=== PATIENT | male | born 1945 ===

== ENCOUNTER 2018-04-02 11:28 | Inpatient (IN) | payer OTHER ==
[~2018-04-02] VITALS: Ht 180.3 cm; Wt 117.9 kg
[2018-04-02] MEDS ORDERED: FORTAMET1000 MG (11:56)
[2018-04-02] MEDS ORDERED: NEURONTIN800 MG (11:57)
[2018-04-02] MEDS ORDERED: COZAAR100 MG (11:57)
== END 2018-04-04 11:24 | disposition home or self-care (01) | DRG 433 ==
LOC: ER 11:28 → MEDI 16:37 → EDBD 16:37 → MEDI 04-03 18:50 → EDBD 04-04 11:24
PROC: 3E0F7GC Introduction of Other Therapeutic Substance into Respiratory Tract, Via Natural or Artificial Opening (ICD-10-PCS; 2018-04-02)
PROC: 4A033R1 Measurement of Arterial Saturation, Peripheral, Percutaneous Approach (ICD-10-PCS; 2018-04-02)
PROC: BW21YZZ Computerized Tomography (CT Scan) of Abdomen and Pelvis using Other Contrast (ICD-10-PCS; 2018-04-02)
PROC: 0W9G3ZX Drainage of Peritoneal Cavity, Percutaneous Approach, Diagnostic (ICD-10-PCS; principal; 2018-04-03)
DX: K74.69 Other cirrhosis of liver (principal); R18.8 Other ascites; I11.9 Hypertensive heart disease without heart failure; E11.9 Type 2 diabetes mellitus without complications; R06.02 Shortness of breath

== ENCOUNTER 2018-04-27 11:40 | Day surgery (SDC) | payer OTHER ==
[~2018-04-27 11:40] MED LIST: COZAAR100 MG; FORTAMET1000 MG; NEURONTIN800 MG
== END 2018-04-27 16:10 | disposition home or self-care (01) ==
LOC: AMB-ENDOS 11:40 → EDBD 11:40 → AMB-ENDOS 16:10
DX: K74.69 Other cirrhosis of liver (principal); R18.8 Other ascites

== ENCOUNTER 2018-07-28 06:50 | Inpatient (IN) | payer OTHER ==
[~2018-07-28] VITALS: Ht 180.3 cm; Wt 122.5 kg
[2018-07-28] MEDS ORDERED: LASIX40 MG PO (07:28)
[2018-07-28] MEDS ORDERED: PROTONIX40 MG PO (07:29)
[2018-07-30] MEDS ORDERED: ZYLOPRIM100 M1 PO (09:35)
[2018-07-30] MEDS ORDERED: FUROSEMIDE20 MG PO (09:37)
== END 2018-07-30 10:18 | disposition home or self-care (01) | DRG 433 ==
LOC: ER 06:50 → MEDJ 18:18
PROC: BW40ZZZ Ultrasonography of Abdomen (ICD-10-PCS; 2018-07-28)
PROC: 0W9G3ZX Drainage of Peritoneal Cavity, Percutaneous Approach, Diagnostic (ICD-10-PCS; principal; 2018-07-29)
DX: K70.31 Alcoholic cirrhosis of liver with ascites (principal); I43 Cardiomyopathy in diseases classified elsewhere; E11.22 Type 2 diabetes mellitus with diabetic chronic kidney disease; I13.10 Hypertensive heart and chronic kidney disease without heart failure, with stage 1 through stage 4 chronic kidney disease, or unspecified chronic kidney disease; N18.3 Chronic kidney disease, stage 3 (moderate)

== ENCOUNTER 2018-08-25 09:10 | Inpatient (IN) | payer OTHER ==
[~2018-08-25] VITALS: Ht 180.3 cm; Wt 111.1 kg
[~2018-08-25 09:10] MED LIST changes: +FUROSEMIDE20 MG PO; +LASIX40 MG PO; +PROTONIX40 MG PO; +ZYLOPRIM100 M1 PO
[2018-08-25] MEDS ORDERED: AMOXICILLIN500 MG PO (09:27)
[2018-08-25] MEDS ORDERED: CLARITHROMYCIN500 MG PO (09:27)
== END 2018-08-28 12:28 | disposition home or self-care (01) | DRG 433 ==
LOC: ER 09:10 → MEDI 08-26 10:08
PROC: 0W9G3ZZ Drainage of Peritoneal Cavity, Percutaneous Approach (ICD-10-PCS; principal; 2018-08-26)
DX: K70.31 Alcoholic cirrhosis of liver with ascites (principal); I43 Cardiomyopathy in diseases classified elsewhere; E87.1 Hypo-osmolality and hyponatremia; E11.22 Type 2 diabetes mellitus with diabetic chronic kidney disease; I13.10 Hypertensive heart and chronic kidney disease without heart failure, with stage 1 through stage 4 chronic kidney disease, or unspecified chronic kidney disease; N18.1 Chronic kidney disease, stage 1; E87.5 Hyperkalemia